=== PATIENT | female | born 1980 | race Caucasian/White ===

== ENCOUNTER 2022-02-05 17:02 | Emergency (ER) | payer BC, MEDICARE ==
[2022-02-05] MEDS ORDERED: Sodium Chloride 0.9% 2.5 ML Syringe FLUSH PRN (19:02)
[2022-02-05] MEDS ORDERED: Sodium Chloride 0.9% 10 ML Syringe FLUSH PRN (19:02)
[2022-02-05] MEDS ORDERED: Prochlorperazine 10 MG/2 ML SDV IVPUSH ONE (20:06)
[2022-02-05] MEDS ORDERED: diphenhydrAMINE 50 MG/ML SDV IVPUSH ONE (20:06)
[2022-02-05] MEDS ORDERED: Sodium Chloride 0.9% 1,000 ML IV ONE (20:06)
[2022-02-05] MEDS ORDERED: Meclizine 25 MG Tab PO ONE (20:06)
[2022-02-05 20:49] LABS: POTASSIUM,K 3.8 mmol/L (3.5-5.1)
== END 2022-02-05 21:38 | disposition home or self-care (01) ==
LOC: EDBD 17:02 → MW.ED 17:02
DX: R42 Dizziness and giddiness (principal); Z88.6 Allergy status to analgesic agent; Z91.041 Radiographic dye allergy status; Z88.4 Allergy status to anesthetic agent
CPT/HCPCS: 36415; 71045; 80053; 84484; 84703; 93005; 96361; 96374; 96375; 99285; A9270; J0780; J1200; J3490; J7030